=== PATIENT | female | born 1960 | race Caucasian/White ===

== ENCOUNTER 2021-05-30 09:52 | Emergency (ER) | payer OTHER ==
[~2021-05-30] VITALS: Ht 157.5 cm; Wt 71.2 kg
[2021-05-30 09:55] VITALS: BP 125/89
--- NOTE | 2021-05-30 10:04 | NUR ---
PT AMBULATED TO BED
--- NOTE | 2021-05-30 10:15 | NUR ---
61 yo f c/o left-sided chest pain since yesterday. pain 7/10, pressure-like, radiating to left arm. (+) nausea, (+)blurring of vision, (+) h/a, (+) sob. Lt sided weakness noted. ERMD made aware. pmh: htn, migraine meds: losartan, ibuprofen nka
--- NOTE | 2021-05-30 10:18 | NUR ---
RAD AT BEDSIDE
--- NOTE | 2021-05-30 10:26 | NUR ---
BLOOD LABS COLLECTED AND HANDED TO MICHELA SAL
--- NOTE | 2021-05-30 10:37 | NUR ---
EKG DONE AT BEDSIDE
--- NOTE | 2021-05-30 10:47 | NUR ---
PT TAKEN TO CT SCAN VIA [facility] ACCOMPANIED BY BING BRASHER
[2021-05-30 10:56] LABS: BASOPHILS % (AUTO) 1.5 % (0.0-2.0); EOSINOPHILS # (AUTO) 0.1 K/uL (0-0.4); EOSINOPHILS % (AUTO) 2.3 % (0.0-4.0); HEMATOCRIT 37.9 % (36-48); HEMOGLOBIN 12.7 g/dL (12.0-16.0); LYMPHOCYTES # (AUTO) 0.8 K/uL (2.5-16.5); LYMPHOCYTES % (AUTO) 24.9 % (20.5-51.1); MEAN CORPUSCULAR HEMOGLOBIN 28 pg (27-31); MEAN CORPUSCULAR HGB CONC 34 g/dL (33-37); MEAN CORPUSCULAR VOLUME 82.1 fL (80-94); MONOCYTES # (AUTO) 0.3 K/uL (0.8-1.0); MONOCYTES % (AUTO) 8.2 % (1.7-9.3); NEUTROPHILS % (AUTO) 63.1 % (42.2-75.2); PLATELET COUNT (AUTO) 254 K/uL (140-450); RED BLOOD CELL COUNT(AUTO) 4.62 MIL/uL (4.20-5.40); RED CELL DISTRIBUTION WIDTH 13.4 % (11.6-13.7); WHITE BLOOD COUNT (AUTO) 3.2 K/uL (4.8-10.8)
--- NOTE | 2021-05-30 11:00 | NUR ---
PT BACK FROM CT AND CONNECTED TO MONITOR
--- NOTE | 2021-05-30 11:04 | NUR ---
PT AMBULATED TO RESTROOM STEADY GAIT
--- NOTE | 2021-05-30 11:09 | NUR ---
PT RETURNED TO BED
[2021-05-30 11:13] LABS: PROTHROMBIN TIME 9.4 secs (10.8-13.4)
[2021-05-30 11:15] LABS: ALBUMIN 3.6 g/dL (3.4-5.0); ANION GAP 8.9 (8-16); CARBON DIOXIDE 23.6 mmol/L (21-32); CREATININE 0.7 mg/dL (0.6-1.3); POTASSIUM 3.5 mmol/L (3.5-5.1); TOTAL BILIRUBIN 0.4 mg/dL (0.0-1.0)
[2021-05-30 11:23] LABS: APPEARANCE,URINE CLEAR (CLEAR); BILIRUBIN,URINE NEGATIVE (NEGATIVE); BLOOD, URINE 1+ (NEGATIVE); COLOR,URINE YELLOW (YELLOW); LEUKOCYTE ESTERASE ,URINE NEGATIVE (NEGATIVE); NITRITE, URINE NEGATIVE (NEGATIVE); PH,URINE 6.5 (5.0-9.0); UGLUCOSE NEGATIVE (NEGATIVE)
[2021-05-30 11:33] LABS: RBC,URINE 0-5 /HPF (0-5); WBC,URINE 0-5 /HPF (0-5)
--- NOTE | 2021-05-30 12:13 | NUR ---
CLEVE REYNAGA SAMPLE COLLECTED AND WALKED TO THE LAB
--- NOTE | 2021-05-30 13:34 | NUR ---
DC PLANNING: TC FROM DR MENDEZ, THE PATIENT IS S/P CVA AND NEEDS AN MRI, THE PATIENT IS INSURED THROUGH [facility]. CM SPOKE WITH CHIDI DORSEY AT [facility],([phone]) SHE STATES THAT THE PATIENT CAN GO TO [facility] OR [facility] TO GET AN MRI. NO AUTH NEEDED FOR THE PATIENT TO GO FROM [facility] TO EITHER [place] OR [facility], MD TO MD HAND-OFF WILL BE NEEDED. FACILITY OPTIONS ENDORSED TO DR MENDEZ FOR ER TO F/U. CM WILL FOLLOW NEEDED.
[2021-05-30] MEDS ORDERED: DULO60EC1 PO (13:44)
[2021-05-30] MEDS ORDERED: ALPR0.252 PO (13:44)
[2021-05-30] MEDS ORDERED: ATA10 PO (13:44)
[2021-05-30] MEDS ORDERED: LOSA100T1 PO (13:44)
--- NOTE | 2021-05-30 14:00 | NUR ---
PT STATES SHE STARTED FEELING WEAK 6AM 05/29.
--- NOTE | 2021-05-30 14:45 | NUR ---
Patient to be transferred to [facility] ER. Is being transferred due to HIGHER LEVEL OF CARE. Receiving facility has accepting physician and available space. ER physician has signed transfer form. Patient or responsible green party has agreed to transfer and signed form. Patient belongings inventoried and will be sent with patient. Copy of nursing notes, lab reports, EKG, Physicians Orders and X-rays to be sent with patient. Report called to HAZEL BRASHER at receiving facility. [facility] ambulance service has been called for transfer. ETA is 20 MIN.
--- NOTE | 2021-05-30 14:45 | NUR ---
PT REPORT GIVEN TO TRANSFER TO HAZEL BRASHER AT [facility] [phone]
--- NOTE | 2021-05-30 14:55 | NUR ---
[facility] TRANSPORT AT BEDSIDE
[2021-05-30 14:59] VITALS: BP 128/77
--- NOTE | 2021-05-30 14:59 | NUR ---
[facility] TRANSPORT WITH PT [facility]IA [facility], TRANSFERRED TO [facility] AT THIS TIME
== END 2021-05-30 14:59 | disposition short-term general hospital (02) ==
LOC: MED 09:52
DX: R07.9 Chest pain, unspecified (principal); R51.9 Headache, unspecified; R20.0 Anesthesia of skin; R11.0 Nausea; Z20.822 Contact with and (suspected) exposure to COVID-19
CPT/HCPCS: 36415; 70450; 70496; 70498; 71045; 80053; 81001; 84484; 85025; 85610; 85730; 86886; 86900; 86901; 87426; 93005; 99291; Q0092; Q9967; 99285

== ENCOUNTER 2022-05-08 19:11 | Emergency (ER) | payer OTHER ==
[~2022-05-08] VITALS: Ht 157.5 cm; Wt 69.9 kg
[~2022-05-08 19:11] MED LIST: ALPR0.252 PO; ATA10 PO; DULO60EC1 PO; LOSA100T1 PO
[2022-05-08 19:30] VITALS: BP 128/78
--- NOTE | 2022-05-08 19:35 | NUR ---
TO LOBBY FOLLOWING TRIAGE. UA OBTAINED
--- NOTE | 2022-05-08 20:30 | NUR ---
PT AMBULATED TO BED #7
--- NOTE | 2022-05-08 20:40 | NUR ---
Luanne ponce in [facility] - 05/08/22 at 2047 by [email or web address] COVID-19 swabs collected and sent to lab.
[2022-05-08 20:44] LABS: BASOPHILS % (AUTO) 0.9 % (0.0-2.0); EOSINOPHILS # (AUTO) 0.1 K/uL (0-0.4); EOSINOPHILS % (AUTO) 1.6 % (0.0-4.0); HEMOGLOBIN 13.5 g/dL (12.0-16.0); LYMPHOCYTES # (AUTO) 0.9 K/uL (2.5-16.5); LYMPHOCYTES % (AUTO) 15.5 % (20.5-51.1); MEAN CORPUSCULAR HEMOGLOBIN 28 pg (27-31); MEAN CORPUSCULAR HGB CONC 34 g/dL (33-37); MEAN CORPUSCULAR VOLUME 81.2 fL (80-94); MONOCYTES # (AUTO) 0.3 K/uL (0.8-1.0); MONOCYTES % (AUTO) 5.6 % (1.7-9.3); NEUTROPHILS # (AUTO) 4.3 K/uL (1.8-7.7); NEUTROPHILS % (AUTO) 76.4 % (42.2-75.2); PLATELET COUNT (AUTO) 247 K/uL (140-450); RED BLOOD CELL COUNT(AUTO) 4.93 MIL/uL (4.20-5.40); RED CELL DISTRIBUTION WIDTH 13.9 % (11.6-13.7); WHITE BLOOD COUNT (AUTO) 5.6 K/uL (4.8-10.8)
--- NOTE | 2022-05-08 21:01 | NUR ---
Dr. Urena examining patient.
[2022-05-08 21:04] LABS: ALBUMIN 3.8 g/dL (3.4-5.0); ANION GAP 13.5 (8-16); CARBON DIOXIDE 26.2 mmol/L (21-32); CREATININE 1.3 mg/dL (0.6-1.3); POTASSIUM 3.7 mmol/L (3.5-5.1); TOTAL BILIRUBIN 0.4 mg/dL (0.0-1.0)
[2022-05-08] MEDS ORDERED: KETOROLAC 30 MG/ML VIAL IM ONE (21:10)
[2022-05-08] MEDS ORDERED: ACETAMINOPHEN EXTRA STRENGTH 500 MG TAB PO ONE (21:10)
[2022-05-08] MEDS ORDERED: TAMSULOSIN 0.4 MG CAP PO SCH (21:10)
[2022-05-08] MEDS ORDERED: ONDANSETRON 4 MG ODT PO ONE (21:10)
[2022-05-08] MEDS ORDERED: ACET-10509 PO (21:12)
[2022-05-08] MEDS ORDERED: CEPH-588 PO (21:12)
[2022-05-08] MEDS ORDERED: IBUP-1842 PO (21:12)
[2022-05-08] MEDS ORDERED: TAMS0.4C96 PO (21:12)
[2022-05-08 21:27] LABS: APPEARANCE,URINE CLEAR (CLEAR); BILIRUBIN,URINE NEGATIVE (NEGATIVE); BLOOD, URINE 2+ (NEGATIVE); COLOR,URINE YELLOW (YELLOW); LEUKOCYTE ESTERASE ,URINE NEGATIVE (NEGATIVE); NITRITE, URINE NEGATIVE (NEGATIVE); UGLUCOSE NEGATIVE (NEGATIVE)
[2022-05-08 21:38] LABS: WBC,URINE 0-5 /HPF (0-5)
[2022-05-08 21:39] LABS: CALCIUM OXALATE CRYSTALS,UR 0-10 /HPF (None Seen); OTHER CASTS, URINE None Seen /LPF (None Seen)
--- NOTE | 2022-05-08 22:04 | NUR ---
Patient discharged with v/s stable. Written and verbal after care instructions given and explained. Patient alert, oriented and verbalized understanding of instructions. Ambulatory with steady gait. All questions addressed prior to discharge. ID band removed. Patient advised to follow up with PMD. Rx of TAMSULOSIN, TYLENOL, KEFLEX, MOTRIN given. Patient educated on indication of medication including possible reaction and side effects. Opportunity to ask questions provided and answered.
== END 2022-05-08 22:04 | disposition home or self-care (01) ==
LOC: MED 19:11
DX: N20.1 Calculus of ureter (principal); Z90.49 Acquired absence of other specified parts of digestive tract
CPT/HCPCS: 36415; 74176; 80053; 81001; 83690; 85025; 96372; 99284; J1885; Q0162

== ENCOUNTER 2024-04-30 10:52 | Emergency (ER) | payer OTHER ==
[~2024-04-30] VITALS: Ht 154.9 cm; Wt 72.6 kg
[~2024-04-30 10:52] MED LIST changes: +ACET500T99 PO; +CEPH-588 PO; +IBUP-1842 PO; +LOSA-272 PO; -LOSA100T1 PO; +TAMS0.4C96 PO
[2024-04-30 10:55] VITALS: BP 121/73; PULSE 84; RESP 15; TEMP 98.8; O2SAT 97
[2024-04-30] MEDS: KETOROLAC 60 MG/2 ML VIAL IM ONE (11:33)
[2024-04-30] MEDS: METOCLOPRAMIDE 10 MG TAB PO ONE (12:25)
[2024-04-30] MEDS: ONDANSETRON 4 MG ODT PO ONE (12:25)
[2024-04-30 13:17] LABS: APPEARANCE,URINE CLEAR (CLEAR); BILIRUBIN,URINE 1+ (NEGATIVE); BLOOD, URINE 3+ (NEGATIVE); COLOR,URINE YELLOW (YELLOW); LEUKOCYTE ESTERASE ,URINE TRACE (NEGATIVE); NITRITE, URINE NEGATIVE (NEGATIVE); PROTEIN,URINE TRACE (NEGATIVE); UGLUCOSE NEGATIVE (NEGATIVE)
[2024-04-30 13:29] LABS: ICTOTEST NEGATIVE (NEGATIVE)
[2024-04-30 13:30] LABS: BACTERIA,URINE 3+ /HPF (None Seen); MUCUS,URINE 2+ /LPF (None Seen); RBC,URINE 11-20 (MOD) /HPF (0-5); WBC,URINE 16-25 (MOD) /HPF (0-5)
[2024-04-30] MEDS ORDERED: PYR100 PO (13:36)
[2024-04-30] MEDS ORDERED: CEPH-588 PO (13:36)
[2024-04-30 13:45] VITALS: BP 103/65; PULSE 76; RESP 16; TEMP 97.8; O2SAT 98
== END 2024-04-30 13:48 | disposition home or self-care (01) ==
LOC: MED 10:52
DX: J06.9 Acute upper respiratory infection, unspecified (principal); N30.00 Acute cystitis without hematuria; I10 Essential (primary) hypertension; G43.909 Migraine, unspecified, not intractable, without status migrainosus; Z85.3 Personal history of malignant neoplasm of breast; Z79.899 Other long term (current) drug therapy
CPT/HCPCS: 71045; 81001; 87086; 87186; 96372; 99284; J1885; J8597; Q0092; Q0162